=== PATIENT | male | born 1955 | race Two or more races ===

== ENCOUNTER → 2020-04-04 | Outpatient (CLI) | payer MEDICAID | END | disposition home or self-care (01) | LOC: XYW 10:51 | PROVIDERS: ATTEND Internal Medicine | DX: I11.9 Hypertensive heart disease without heart failure (principal); I77.819 Aortic ectasia, unspecified site | CPT/HCPCS: 93306 ==

== ENCOUNTER 2021-01-30 13:27 | Emergency (ER) | payer OTHER, MEDICAID ==
[~2021-01-30] VITALS: Ht 165.1 cm; Wt 78.0 kg
[2021-01-30] MEDS ORDERED: SODIUM CHLORIDE 0.9% 1,000 ML IVB ONE (14:00)
[2021-01-30] MEDS ORDERED: ONDANSETRON HCL 4 MG/2 ML VIAL IV ONE (14:00)
[2021-01-30 14:30] LABS: Basophils # (auto) 0 10 ^3/uL (0-0.2); Basophils % (auto) 0.4 % (0.0-2.0); Eosinophils # (auto) 0.1 10 ^3/uL (0-0.8); Eosinophils % (auto) 0.9 % (0.0-7.0); Hemoglobin 12.3 g/dL (13.5-17.5); Lymphocytes # (auto) 1.6 10 ^3/uL (0.4-5.4); Lymphocytes % (auto) 19.1 % (10.0-50.0); Mean Corpuscular Hemoglobin 28.4 pg (28.0-32.0); Mean Corpuscular Hgb Conc. 34.3 g/dL (32.0-36.0); Mean Corpuscular Volume 82.7 fL (80.0-100.0); Monocytes # (auto) 0.7 10 ^3/uL (0-1.3); Monocytes % (auto) 7.9 % (0.0-12.0); Neutrophils % (auto) 71.7 % (37.0-80.0); Platelet Count (auto) 241 10^3/uL (140-450); Red Blood Cells 4.35 10^6/uL (4.5-5.90); Red Cell Distribution Width 14.9 % (11.8-14.3); White Blood Cell 8.4 10^3/uL (4.4-10.8)
[2021-01-30 14:36] LABS: Urine Bacteria NONE SEEN /hpf (None Seen); Urine Blood Negative /uL (Negative); Urine Hyaline Cast FEW /lpf (0 - 2); Urine Mucus FEW (None Seen); Urine Specific Gravity 1.017 (1.001-1.035); Urine WBC <1 /hpf (0 - 3)
[2021-01-30 14:45] LABS: INR 1.05 (0.9-1.15); Partial Thromboplastin Time 27.3 sec (23.0-31.2)
[2021-01-30 14:47] LABS: Albumin 3.6 g/dL (3.4-5.0); Anion Gap 7 (5-15); Blood Urea Nitrogen 38 mg/dL (7-18); Calcium 8.5 mg/dL (8.5-10.1); Carbon Dioxide 25 mmol/L (21-32); Chloride 101 mmol/L (98-107); Glucose 89 mg/dL (74-106); Potassium 4.2 mmol/L (3.5-5.1); Sodium 133 mmol/L (136-145)
[2021-01-30 14:48] LABS: Magnesium 2.3 mg/dL (1.6-2.6)
[2021-01-30 14:49] LABS: Alanine Aminotransferase 24 U/L (16-61); Aspartate Aminotransferase 17 U/L (15-37); GFR African American 43 mL/min; GFR Non-African American 36 mL/min
[2021-01-30 14:53] LABS: Alkaline Phosphatase 80 U/L (45-117); Bilirubin, Total 0.6 mg/dL (0.2-1.0); Total Protein 7.3 g/dL (6.4-8.2)
[2021-01-30] MEDS ORDERED: KETOROLAC TROMETH 30 MG/ML 1ML VIAL IV ONE (15:30)
[2021-01-30 17:03] VITALS: BP 151/72
== END 2021-01-30 17:40 | disposition home or self-care (01) ==
LOC: ER 13:30
DX: N20.0 Calculus of kidney (principal); R11.2 Nausea with vomiting, unspecified; I10 Essential (primary) hypertension; E11.9 Type 2 diabetes mellitus without complications; Z90.49 Acquired absence of other specified parts of digestive tract; Z87.891 Personal history of nicotine dependence
CPT/HCPCS: 36415; 71046; 74176; 80053; 81001; 82962; 83690; 83735; 84484; 85025; 85610; 85730; 93005; 96361; 96374; 96375; 99285; J1885; J2405; J7030

== ENCOUNTER → 2021-02-15 | Outpatient (CLI) | payer MEDICAID ==
[2021-02-15 10:25] LABS: BUN/Creatinine Ratio 16.7; Calcium 9.3 mg/dL (8.5-10.1); Potassium 4.2 mmol/L (3.5-5.1)
== END | disposition home or self-care (01) ==
LOC: LAB 09:28
PROVIDERS: ATTEND Internal Medicine
DX: E11.49 Type 2 diabetes mellitus with other diabetic neurological complication (principal)
CPT/HCPCS: 36415; 80048; 83036

== ENCOUNTER → 2021-08-12 | Outpatient (CLI) | payer MEDICAID ==
[2021-08-12 15:41] LABS: Urine WBC None Seen /hpf (0 - 3)
[2021-08-12 15:56] LABS: Urine Bacteria NONE SEEN /hpf (None Seen); Urine Blood TRACE /uL (Negative); Urine Specific Gravity 1.016 (1.001-1.035)
[2021-08-12 16:18] LABS: Basophils # (auto) 0.1 10 ^3/uL (0-0.2); Basophils % (auto) 1.3 % (0.0-2.0); Eosinophils # (auto) 0.3 10 ^3/uL (0-0.8); Eosinophils % (auto) 3.9 % (0.0-7.0); Hematocrit 36.7 % (41.0-53.0); Lymphocytes # (auto) 1.6 10 ^3/uL (0.4-5.4); Lymphocytes % (auto) 24.4 % (10.0-50.0); Mean Corpuscular Hemoglobin 27.3 pg (28.0-32.0); Mean Corpuscular Hgb Conc. 32.8 g/dL (32.0-36.0); Mean Corpuscular Volume 83.2 fL (80.0-100.0); Monocytes # (auto) 0.4 10 ^3/uL (0-1.3); Monocytes % (auto) 6.9 % (0.0-12.0); Neutrophils # (auto) 4.1 10 ^3/uL (1.6-8.6); Neutrophils % (auto) 63.5 % (37.0-80.0); Red Blood Cells 4.41 10^6/uL (4.5-5.90); Red Cell Distribution Width 14.2 % (11.8-14.3); White Blood Cell 6.5 10^3/uL (4.4-10.8)
[2021-08-12 16:37] LABS: Chloride 108 mmol/L (98-107); Potassium 4.4 mmol/L (3.5-5.1); Sodium 139 mmol/L (136-145)
[2021-08-12 16:47] LABS: Alanine Aminotransferase 32 U/L (16-61); Albumin 3.7 g/dL (3.4-5.0); Alkaline Phosphatase 85 U/L (45-117); Anion Gap 7 (5-15); Aspartate Aminotransferase 21 U/L (15-37); BUN/Creatinine Ratio 8.4; Bilirubin, Total 0.3 mg/dL (0.2-1.0); Blood Urea Nitrogen 15 mg/dL (7-18); Calcium 8.5 mg/dL (8.5-10.1); Carbon Dioxide 24 mmol/L (21-32); Cholesterol 130 mg/dL (< 200); GFR African American 50 mL/min; GFR Non-African American 41 mL/min; Glucose 220 mg/dL (74-106); HDL Cholesterol 29 mg/dL (40-59); Total Protein 6.9 g/dL (6.4-8.2); Triglycerides 420 mg/dL (< 150)
== END | disposition home or self-care (01) ==
LOC: LAB 15:29
PROVIDERS: ATTEND Internal Medicine
DX: I10 Essential (primary) hypertension (principal); E55.9 Vitamin D deficiency, unspecified
CPT/HCPCS: 36415; 80053; 80061; 81001; 82043; 82306; 83036; 85025

== ENCOUNTER → 2021-10-30 | Outpatient (CLI) | payer MEDICAID ==
[2021-10-30 13:01] LABS: Potassium 4.4 mmol/L (3.5-5.1)
[2021-10-30 13:19] LABS: Albumin 3.8 g/dL (3.4-5.0); BUN/Creatinine Ratio 19.4; Bilirubin, Total 0.4 mg/dL (0.2-1.0); Calcium 9.2 mg/dL (8.5-10.1); Total Protein 7.9 g/dL (6.4-8.2)
== END | disposition home or self-care (01) ==
LOC: LAB 09:49
PROVIDERS: ATTEND Student in an Organized Health Care Education/Training Program
DX: E11.22 Type 2 diabetes mellitus with diabetic chronic kidney disease (principal); N18.9 Chronic kidney disease, unspecified
CPT/HCPCS: 36415; 80053; 82043; 83036

== ENCOUNTER 2022-01-10 12:41 | Day surgery (SDC) | payer OTHER, MEDICAID ==
[2022-01-08 09:33] LABS: Basophils # (auto) 0 10 ^3/uL (0-0.2); Basophils % (auto) 0.8 % (0.0-2.0); Eosinophils # (auto) 0.1 10 ^3/uL (0-0.8); Eosinophils % (auto) 2.6 % (0.0-7.0); Lymphocytes # (auto) 1.3 10 ^3/uL (0.4-5.4); Lymphocytes % (auto) 23.6 % (10.0-50.0); Mean Corpuscular Hemoglobin 26.5 pg (28.0-32.0); Mean Corpuscular Hgb Conc. 33.4 g/dL (32.0-36.0); Mean Corpuscular Volume 79.3 fL (80.0-100.0); Monocytes # (auto) 0.4 10 ^3/uL (0-1.3); Monocytes % (auto) 7.8 % (0.0-12.0); Neutrophils # (auto) 3.7 10 ^3/uL (1.6-8.6); Neutrophils % (auto) 65.2 % (37.0-80.0); Red Blood Cells 4.54 10^6/uL (4.5-5.90); Red Cell Distribution Width 14.7 % (11.8-14.3); White Blood Cell 5.7 10^3/uL (4.4-10.8)
[2022-01-08 09:54] LABS: INR 1.08 (0.9-1.15)
[2022-01-08 10:33] LABS: Potassium 4.2 mmol/L (3.5-5.1)
[2022-01-08 10:39] LABS: Albumin 3.6 g/dL (3.4-5.0); BUN/Creatinine Ratio 14.8; Bilirubin, Total 0.3 mg/dL (0.2-1.0); Calcium 8.9 mg/dL (8.5-10.1); Total Protein 7.5 g/dL (6.4-8.2)
[~2022-01-10] VITALS: Ht 165.1 cm; Wt 77.1 kg
[~2022-01-10 12:41] MED LIST: CARV25TA55 PO; INSUINJ37 SC; LIRA18IN2 SUBCUT; LOSA-39 PO; METF-372 PO; ROSU40TA PO
[2022-01-10] MEDS ORDERED: LIDOCAINE VISCOUS 2% 15ML UD ONE (13:07)
[2022-01-10] MEDS ORDERED: SODIUM CHLORIDE LOCK 10 ML ONE (13:07)
[2022-01-10] MEDS: fentaNYL CITRATE 100 MCG/2 ML VL ONE ×2 (14:34→14:46)
[2022-01-10] MEDS: MIDAZOLAM HCL 5 MG/ML-1ML VIAL ONE ×2 (14:34→14:48)
[2022-01-10] MEDS: diphenhdrAMINE HCL 50 MG/1 ML VL ONE ×2 (14:34→14:38)
[2022-01-10 15:40] VITALS: BP 192/93
== END 2022-01-10 15:40 | disposition home or self-care (01) ==
LOC: GI 12:41
PROVIDERS: ATTEND Internal Medicine Gastroenterology
DX: K62.5 Hemorrhage of anus and rectum (principal); D12.4 Benign neoplasm of descending colon; D12.3 Benign neoplasm of transverse colon; D12.5 Benign neoplasm of sigmoid colon; K62.1 Rectal polyp; K57.30 Diverticulosis of large intestine without perforation or abscess without bleeding; K64.8 Other hemorrhoids; I10 Essential (primary) hypertension; E11.9 Type 2 diabetes mellitus without complications; E78.5 Hyperlipidemia, unspecified; Z90.49 Acquired absence of other specified parts of digestive tract; Z86.010 Personal history of colon polyps; Z20.822 Contact with and (suspected) exposure to COVID-19
CPT/HCPCS: 36415; 45385; 80053; 82962; 85025; 85610; 85730; 88305; J1200; J2250; J3010; J7030; U0003; 99153; G0500

== ENCOUNTER 2022-01-30 13:25 | Inpatient (IN) | payer OTHER, MEDICAID ==
[~2022-01-30] VITALS: Ht 165.1 cm; Wt 79.1 kg
[2022-01-30 14:28] LABS: Basophils # (auto) 0.1 10 ^3/uL (0-0.2); Eosinophils # (auto) 0 10 ^3/uL (0-0.8); Eosinophils % (auto) 0.7 % (0.0-7.0); Monocytes # (auto) 0.7 10 ^3/uL (0-1.3); Nucleated Red Blood Cells % 0.1 %
[2022-01-30 14:30] LABS: Basophils % (auto) 1.2 % (0.0-2.0); Hematocrit 36.7 % (41.0-53.0); Hemoglobin 12.3 g/dL (13.5-17.5); Lymphocytes # (auto) 1.3 10 ^3/uL (0.4-5.4); Lymphocytes % (auto) 24.1 % (10.0-50.0); Mean Corpuscular Hemoglobin 26.6 pg (28.0-32.0); Mean Corpuscular Hgb Conc. 33.6 g/dL (32.0-36.0); Mean Corpuscular Volume 79.3 fL (80.0-100.0); Monocytes % (auto) 12.6 % (0.0-12.0); Neutrophils # (auto) 3.3 10 ^3/uL (1.6-8.6); Neutrophils % (auto) 61.4 % (37.0-80.0); Red Blood Cells 4.63 10^6/uL (4.5-5.90); Red Cell Distribution Width 15.5 % (11.8-14.3); White Blood Cell 5.3 10^3/uL (4.4-10.8)
[2022-01-30 14:42] LABS: Albumin 3.3 g/dL (3.4-5.0); Calcium 8.7 mg/dL (8.5-10.1)
[2022-01-30 14:45] LABS: BUN/Creatinine Ratio 9.6; Bilirubin, Total 0.3 mg/dL (0.2-1.0); Total Protein 7.7 g/dL (6.4-8.2)
[2022-01-30 14:49] LABS: INR 1.08 (0.9-1.15); Partial Thromboplastin Time 28.7 sec (23.6-33.0)
[2022-01-30 20:01] VITALS: BP 122/78
[2022-01-30 21:30] LABS: Urine Bacteria FEW /hpf (None Seen); Urine Blood TRACE /uL (Negative); Urine Mucus FEW (None Seen); Urine WBC 4 /hpf (0 - 3)
[2022-01-30] MEDS ORDERED: ACETAMINOPHEN 325 MG TAB PO PRN (21:35)
[2022-01-30] MEDS ORDERED: ASPirin 81 mg TAB PO ONE (21:35)
[2022-01-30] MEDS ORDERED: DEXTROSE (50%) 50ML SYRG IV PRN (21:35)
[2022-01-30] MEDS ORDERED: ONDANSETRON HCL 4 MG/2 ML VIAL IV PRN (21:40)
[2022-01-30] MEDS ORDERED: DOCUSATE SOD 100 MG CAP PO PRN (21:40)
[2022-01-30] MEDS ORDERED: HYDROcodone-ACET 5/325MG TAB PO PRN (21:40)
[2022-01-30] MEDS: ALBUTEROL SULF HFA 90MCG INH 200DOSE IN SCH (21:56)
[2022-01-30] MEDS ORDERED: ATORVASTATIN 20 MG TAB PO SCH (22:00)
[2022-01-30] MEDS: InsuLIN REG 1unit/0.01ml Soln (100units/ml) SC SCH (22:00)
[2022-01-30] MEDS: SODIUM CHLOR 0.9% PF (SALINE LOCK) 10ML VIAL/SYR IV SCH (22:00)
[2022-01-30] MEDS: ACCU-CHEK COMFORT CURVE STRIP VI SCH (22:00)
[2022-01-30] MEDS: CARVEDILOL 12.5 MG TAB PO SCH (23:13)
[2022-01-30] MEDS ORDERED: NITROGLYCERIN 0.4 MG SL TAB SL PRN (23:45)
[2022-01-30] MEDS ORDERED: MORPHINE SULFATE INJ 2 MG/ml SYRG IV PRN (23:45)
[2022-01-31] VITALS (7 sets, daily range): BP systolic 141–173; BP diastolic 56–86
[2022-01-31] MEDS: AZITHROMYCIN 500MG/ 250ML 250 ML IV SCH ×2 (00:03→21:29)
[2022-01-31] MEDS: ACCU-CHEK COMFORT CURVE STRIP VI SCH ×4 (06:39→22:18)
[2022-01-31] MEDS: InsuLIN REG 1unit/0.01ml Soln (100units/ml) SC SCH ×4 (06:39→22:29)
[2022-01-31] MEDS: SODIUM CHLOR 0.9% PF (SALINE LOCK) 10ML VIAL/SYR IV SCH ×3 (06:40→22:17)
[2022-01-31 07:20] LABS: Basophils # (auto) 0 10 ^3/uL (0-0.2); Eosinophils # (auto) 0.1 10 ^3/uL (0-0.8); Lymphocytes # (auto) 1.1 10 ^3/uL (0.4-5.4); Monocytes # (auto) 0.6 10 ^3/uL (0-1.3); Neutrophils # (auto) 2.4 10 ^3/uL (1.6-8.6); Nucleated Red Blood Cells % 0.1 %; White Blood Cell 4.2 10^3/uL (4.4-10.8)
[2022-01-31 07:22] LABS: Basophils % (auto) 0.7 % (0.0-2.0); Hematocrit 34.8 % (41.0-53.0); Hemoglobin 11.7 g/dL (13.5-17.5); Lymphocytes % (auto) 26.9 % (10.0-50.0); Mean Corpuscular Hemoglobin 26.9 pg (28.0-32.0); Mean Corpuscular Hgb Conc. 33.7 g/dL (32.0-36.0); Mean Corpuscular Volume 79.8 fL (80.0-100.0); Monocytes % (auto) 14.2 % (0.0-12.0); Neutrophils % (auto) 56.2 % (37.0-80.0); Red Blood Cells 4.37 10^6/uL (4.5-5.90); Red Cell Distribution Width 15.1 % (11.8-14.3)
[2022-01-31 07:37] LABS: Albumin 2.9 g/dL (3.4-5.0); Calcium 8.5 mg/dL (8.5-10.1)
[2022-01-31 07:43] LABS: BUN/Creatinine Ratio 14.4; Bilirubin, Total 0.3 mg/dL (0.2-1.0); Total Protein 6.9 g/dL (6.4-8.2)
[2022-01-31] MEDS ORDERED: DexAMETHasone SOD PHOS 10MG/1ML VIAL INJ IV SCH (10:00)
[2022-01-31] MEDS: ASPirin 81 mg TAB PO SCH (10:47)
[2022-01-31] MEDS: ASCORBIC ACID 1,000 MG TAB PO SCH (10:48)
[2022-01-31] MEDS: CHOLECALCIFEROL (VITD3) 2,000 UNIT CAP/TAB PO SCH (10:48)
[2022-01-31] MEDS: CARVEDILOL 12.5 MG TAB PO SCH ×2 (10:49→22:18)
[2022-01-31] MEDS: hydrALAZINE HCL 20 MG/ML VL IV PRN ×2 (12:08→22:36)
[2022-01-31] MEDS: ZINC SULFATE 220mg CAP or TAB PO SCH (12:14)
[2022-01-31] MEDS ORDERED: cefTRIAXone 1GM/50ML D5W 50 ML IV ONE (16:15)
[2022-01-31] MEDS ORDERED: LOSARTAN POTASSIUM 50 MG TAB PO ONE (16:30)
[2022-01-31] MEDS ORDERED: POLYETHYLENE GLYCOL 17 GM PWDR PO ONE (16:30)
[2022-01-31] MEDS: ALBUTEROL SULF HFA 90MCG INH 200DOSE IN SCH (16:51)
[2022-01-31] MEDS ORDERED: IPRATROPIUM BROMIDE HFA AER IN SCH (18:00)
[2022-01-31] MEDS ORDERED: INSULIN LANTUS (GLARGINE) 1 /0.01ml (100units/ml) SC ONE (18:30)
[2022-01-31] MEDS: SODIUM CHLORIDE 0.9% 1,000 ML IV SCH (19:45)
[2022-01-31 19:55] LABS: Albumin 3.4 g/dL (3.4-5.0); Calcium 8.8 mg/dL (8.5-10.1); Potassium 4.2 mmol/L (3.5-5.1)
[2022-01-31 20:37] LABS: BUN/Creatinine Ratio 15.8; Bilirubin, Total 0.3 mg/dL (0.2-1.0); Total Protein 8.1 g/dL (6.4-8.2)
[2022-01-31] MEDS ORDERED: IPRATROPIUM BROM 0.5 MG/2.5ML INH SOL NEB SCH (22:00)
[2022-01-31] MEDS: ATORVASTATIN 20 MG TAB PO SCH (22:18)
[2022-02-01 05:00] VITALS: BP 152/84
[2022-02-01] MEDS: SODIUM CHLOR 0.9% PF (SALINE LOCK) 10ML VIAL/SYR IV SCH ×3 (05:42→21:48)
[2022-02-01] MEDS: SODIUM CHLORIDE 0.9% 1,000 ML IV SCH ×3 (05:42→23:45)
[2022-02-01] MEDS: ALBUTEROL SULF HFA 90MCG INH 200DOSE IN SCH ×3 (06:26→18:50)
[2022-02-01] MEDS: ACCU-CHEK COMFORT CURVE STRIP VI SCH ×4 (06:33→21:38)
[2022-02-01] MEDS: IPRATROPIUM BROMIDE HFA AER IN SCH ×3 (06:33→18:50)
[2022-02-01] MEDS: InsuLIN REG 1unit/0.01ml Soln (100units/ml) SC SCH ×4 (06:37→21:48)
[2022-02-01] MEDS: cefTRIAXone 1GM/50ML D5W 50 ML IV SCH (09:00)
[2022-02-01 09:13] VITALS: BP 132/77
[2022-02-01] MEDS: CARVEDILOL 12.5 MG TAB PO SCH ×2 (10:26→21:37)
[2022-02-01] MEDS: ZINC SULFATE 220mg CAP or TAB PO SCH (10:26)
[2022-02-01] MEDS: CHOLECALCIFEROL (VITD3) 2,000 UNIT CAP/TAB PO SCH (10:26)
[2022-02-01] MEDS: POLYETHYLENE GLYCOL 17 GM PWDR PO SCH (10:27)
[2022-02-01] MEDS: ASCORBIC ACID 1,000 MG TAB PO SCH (10:27)
[2022-02-01] MEDS: ASPirin 81 mg TAB PO SCH (10:27)
[2022-02-01] MEDS ORDERED: ERGOCALCIFEROL 50,000 UNIT(1.25MG) CAP PO SCH (11:30)
[2022-02-01] MEDS: INSULIN LANTUS (GLARGINE) 1 /0.01ml (100units/ml) SC SCH ×2 (12:49→21:41)
[2022-02-01 13:00] VITALS: BP 138/77
[2022-02-01 17:00] VITALS: BP 144/70
[2022-02-01] MEDS: ATORVASTATIN 20 MG TAB PO SCH (21:37)
[2022-02-01] MEDS: AZITHROMYCIN 500MG/ 250ML 250 ML IV SCH (21:38)
[2022-02-01 22:00] VITALS: BP 158/58
[2022-02-01] MEDS ORDERED: INSULIN LANTUS (GLARGINE) 1 /0.01ml (100units/ml) SC SCH (22:00)
[2022-02-02] VITALS (7 sets, daily range): BP systolic 140–222; BP diastolic 56–97
[2022-02-02] MEDS: SODIUM CHLOR 0.9% PF (SALINE LOCK) 10ML VIAL/SYR IV SCH ×2 (05:58→14:10)
[2022-02-02] MEDS: ACCU-CHEK COMFORT CURVE STRIP VI SCH ×2 (06:08→13:14)
[2022-02-02] MEDS: InsuLIN REG 1unit/0.01ml Soln (100units/ml) SC SCH ×2 (06:08→11:30)
[2022-02-02] MEDS: hydrALAZINE HCL 20 MG/ML VL IV PRN ×2 (06:11→13:53)
[2022-02-02] MEDS: ALBUTEROL SULF HFA 90MCG INH 200DOSE IN SCH ×2 (06:30→15:17)
[2022-02-02] MEDS: IPRATROPIUM BROMIDE HFA AER IN SCH ×2 (06:30→15:17)
[2022-02-02] MEDS: cefTRIAXone 1GM/50ML D5W 50 ML IV SCH (08:43)
[2022-02-02] MEDS: ASPirin 81 mg TAB PO SCH (09:18)
[2022-02-02] MEDS: ASCORBIC ACID 1,000 MG TAB PO SCH (09:19)
[2022-02-02] MEDS: ZINC SULFATE 220mg CAP or TAB PO SCH (09:19)
[2022-02-02] MEDS: CARVEDILOL 12.5 MG TAB PO SCH (09:19)
[2022-02-02] MEDS: CHOLECALCIFEROL (VITD3) 2,000 UNIT CAP/TAB PO SCH (09:20)
[2022-02-02] MEDS: INSULIN LANTUS (GLARGINE) 1 /0.01ml (100units/ml) SC SCH (09:20)
[2022-02-02] MEDS: POLYETHYLENE GLYCOL 17 GM PWDR PO SCH (10:00)
[2022-02-02] MEDS: SODIUM CHLORIDE 0.9% 1,000 ML IV SCH (10:30)
[2022-02-02] MEDS ORDERED: ALBUAER3 IN (11:05)
[2022-02-02] MEDS ORDERED: ERGO1CAP23 PO (11:05)
[2022-02-02] MEDS ORDERED: EMPA1TAB PO (11:05)
[2022-02-02] MEDS ORDERED: cloNIDine HCL 0.1 MG TAB PO ONE (14:15)
== END 2022-02-02 16:21 | disposition home or self-care (01) | DRG 177 ==
LOC: ER 13:25 → TELE 23:42 → TELE-EAST 01-31 01:39
PROVIDERS: ADMIT Nurse Practitioner Family; ATTEND Internal Medicine
DX: U07.1 COVID-19 (principal); J18.0 Bronchopneumonia, unspecified organism; J12.82 Pneumonia due to coronavirus disease 2019; N17.9 Acute kidney failure, unspecified; C34.90 Malignant neoplasm of unspecified part of unspecified bronchus or lung; J98.11 Atelectasis; N18.32 Chronic kidney disease, stage 3b; E11.22 Type 2 diabetes mellitus with diabetic chronic kidney disease; I12.9 Hypertensive chronic kidney disease with stage 1 through stage 4 chronic kidney disease, or unspecified chronic kidney disease; Z79.84 Long term (current) use of oral hypoglycemic drugs; Z79.899 Other long term (current) drug therapy; Z90.49 Acquired absence of other specified parts of digestive tract; Z82.49 Family history of ischemic heart disease and other diseases of the circulatory system; Z87.891 Personal history of nicotine dependence; R91.1 Solitary pulmonary nodule
CPT/HCPCS: 36415; 71045; 71250; 74176; 80053; 80061; 81001; 82306; 82962; 83036; 83735; 84484; 85025; 85379; 85610; 85730; 93005; 93306; 94640; 96365; 96375; G0378; J0696; J1100; J1815

== ENCOUNTER 2022-04-23 12:18 | Day surgery (SDC) | payer OTHER, MEDICAID ==
[2022-04-22 14:15] LABS: Eosinophils # (auto) 0.2 10 ^3/uL (0-0.8); Hemoglobin 11.7 g/dL (13.5-17.5); Monocytes # (auto) 0.5 10 ^3/uL (0-1.3); Red Cell Distribution Width 15.9 % (11.8-14.3)
[2022-04-22 14:17] LABS: Basophils # (auto) 0 10 ^3/uL (0-0.2); Basophils % (auto) 0.9 % (0.0-2.0); Eosinophils % (auto) 3.1 % (0.0-7.0); Hematocrit 36.7 % (41.0-53.0); Lymphocytes # (auto) 1.7 10 ^3/uL (0.4-5.4); Lymphocytes % (auto) 32.5 % (10.0-50.0); Mean Corpuscular Hemoglobin 25.2 pg (28.0-32.0); Mean Corpuscular Hgb Conc. 31.8 g/dL (32.0-36.0); Mean Corpuscular Volume 79.3 fL (80.0-100.0); Monocytes % (auto) 9.2 % (0.0-12.0); Neutrophils # (auto) 2.9 10 ^3/uL (1.6-8.6); Neutrophils % (auto) 54.3 % (37.0-80.0); Red Blood Cells 4.63 10^6/uL (4.5-5.90); White Blood Cell 5.4 10^3/uL (4.4-10.8)
[2022-04-22 14:44] LABS: INR 1.01 (0.9-1.15); Partial Thromboplastin Time 25.9 sec (24.6-33.4)
[2022-04-22 14:49] LABS: Albumin 3.6 g/dL (3.4-5.0); Calcium 8.9 mg/dL (8.5-10.1); Potassium 4.5 mmol/L (3.5-5.1)
[2022-04-22 14:51] LABS: BUN/Creatinine Ratio 13.2
[2022-04-22 14:54] LABS: Bilirubin, Total 0.4 mg/dL (0.2-1.0)
[~2022-04-23] VITALS: Ht 165.1 cm; Wt 74.8 kg
[~2022-04-23 12:18] MED LIST changes: +CICL8KIT4 EX; +ERGO1CAP23 PO; +KETO2CRE4 EX; +LIDOCAINE VISCOUS 2% 15ML UD ONE; +SITA25TA3 PO; +SODIUM CHLORIDE LOCK 10 ML ONE; +TRIATAB3 OR; +diphenhdrAMINE HCL 50 MG/1 ML VL ONE
[2022-04-23] MEDS: fentaNYL CITRATE 100 MCG/2 ML VL ONE ×2 (13:50→13:53)
[2022-04-23] MEDS: MIDAZOLAM HCL 5 MG/ML-1ML VIAL ONE ×2 (13:50→13:53)
[2022-04-23 14:40] VITALS: BP 199/94
== END 2022-04-23 14:46 | disposition home or self-care (01) ==
LOC: GI 12:18
PROVIDERS: ATTEND Internal Medicine Gastroenterology
DX: D64.9 Anemia, unspecified (principal); K31.7 Polyp of stomach and duodenum; K44.9 Diaphragmatic hernia without obstruction or gangrene; K29.50 Unspecified chronic gastritis without bleeding; Z90.49 Acquired absence of other specified parts of digestive tract; Z98.890 Other specified postprocedural states; Z79.899 Other long term (current) drug therapy; Z20.822 Contact with and (suspected) exposure to COVID-19; Z87.891 Personal history of nicotine dependence
CPT/HCPCS: 36415; 43239; 80053; 82962; 85025; 85610; 85730; 88305; 88342; J2250; J3010; J7030; U0003; 45380; 99152

== ENCOUNTER → 2022-05-27 | Outpatient (CLI) | payer OTHER, MEDICAID ==
[~2022-05-27] MED LIST changes: -LIDOCAINE VISCOUS 2% 15ML UD ONE; -SODIUM CHLORIDE LOCK 10 ML ONE; -diphenhdrAMINE HCL 50 MG/1 ML VL ONE
== END | disposition home or self-care (01) ==
LOC: LAB 10:48
PROVIDERS: ATTEND Student in an Organized Health Care Education/Training Program
DX: E11.22 Type 2 diabetes mellitus with diabetic chronic kidney disease (principal)
CPT/HCPCS: 36415; 83036

== ENCOUNTER → 2022-11-12 | Outpatient (CLI) | payer OTHER ==
[2022-11-12 11:03] LABS: Basophils # (auto) 0 10 ^3/uL (0-0.2); Basophils % (auto) 0.6 % (0.0-2.0); Eosinophils # (auto) 0.1 10 ^3/uL (0-0.8); Eosinophils % (auto) 1.6 % (0.0-7.0); Hematocrit 40.6 % (41.0-53.0); Hemoglobin 13.8 g/dL (13.5-17.5); Lymphocytes % (auto) 12.9 % (10.0-50.0); Mean Corpuscular Hemoglobin 28.2 pg (28.0-32.0); Mean Corpuscular Volume 82.9 fL (80.0-100.0); Monocytes # (auto) 0.7 10 ^3/uL (0-1.3); Monocytes % (auto) 9.6 % (0.0-12.0); Neutrophils # (auto) 5.5 10 ^3/uL (1.6-8.6); Neutrophils % (auto) 75.3 % (37.0-80.0); Nucleated Red Blood Cells % 0.2 %; Red Blood Cells 4.89 10^6/uL (4.5-5.90); Red Cell Distribution Width 14.6 % (11.8-14.3); White Blood Cell 7.4 10^3/uL (4.4-10.8)
[2022-11-12 11:51] LABS: Potassium 3.8 mmol/L (3.5-5.1)
[2022-11-12 11:56] LABS: Albumin 4.4 g/dL (3.4-5.0); BUN/Creatinine Ratio 13.1; Bilirubin, Total 0.5 mg/dL (0.2-1.0); Calcium 9.8 mg/dL (8.5-10.1); Total Protein 8.4 g/dL (6.4-8.2)
[2022-11-12 12:05] LABS: % Iron Saturation 9.4 % (20-55)
[2022-11-12 14:27] LABS: Folate (Folic Acid) 23.38 ng/mL (5.38-24)
== END | disposition home or self-care (01) ==
LOC: LAB 10:35
PROVIDERS: ATTEND Internal Medicine Gastroenterology
DX: R19.7 Diarrhea, unspecified (principal); R10.9 Unspecified abdominal pain; E11.9 Type 2 diabetes mellitus without complications
CPT/HCPCS: 36415; 80053; 82607; 82746; 82784; 83516; 83540; 83550; 85025; 86255; 86677

== ENCOUNTER 2023-09-08 08:50 | Day surgery (SDC) | payer OTHER, MEDICAID ==
[2023-09-02 10:10] LABS: Basophils # (auto) 0.1 10 ^3/uL (0-0.2); Basophils % (auto) 1.2 % (0.0-2.0); Eosinophils # (auto) 0.3 10 ^3/uL (0-0.8); Eosinophils % (auto) 4.6 % (0.0-7.0); Hematocrit 36.4 % (41.0-53.0); Hemoglobin 12.2 g/dL (13.5-17.5); Lymphocytes # (auto) 1.6 10 ^3/uL (0.4-5.4); Lymphocytes % (auto) 28.6 % (10.0-50.0); Mean Corpuscular Hemoglobin 28.4 pg (28.0-32.0); Mean Corpuscular Hgb Conc. 33.4 g/dL (32.0-36.0); Mean Corpuscular Volume 85.1 fL (80.0-100.0); Monocytes # (auto) 0.5 10 ^3/uL (0-1.3); Monocytes % (auto) 9.5 % (0.0-12.0); Neutrophils # (auto) 3.1 10 ^3/uL (1.6-8.6); Neutrophils % (auto) 56.1 % (37.0-80.0); Nucleated Red Blood Cells % 0.1 %; Red Blood Cells 4.28 10^6/uL (4.5-5.90); Red Cell Distribution Width 14.1 % (11.8-14.3); White Blood Cell 5.6 10^3/uL (4.4-10.8)
[2023-09-02 10:35] LABS: INR 0.98 (0.9-1.15); Prothrombin Time 10.3 sec (9.3-11.8)
[2023-09-02 10:47] LABS: Alanine Aminotransferase 18 U/L (7-40); Albumin 4.5 g/dL (3.2-4.8); Alkaline Phosphatase 81 U/L (46-116); Anion Gap 12 (5-15); Aspartate Aminotransferase 13 U/L (13-40); BUN/Creatinine Ratio 5.6 (10.0-20.0); Bilirubin, Total 0.3 mg/dL (0.2-1.0); Blood Urea Nitrogen 8 mg/dL (9-23); Calcium 9.3 mg/dL (8.5-10.1); Carbon Dioxide 21 mmol/L (20-30); Chloride 107 mmol/L (98-107); Glucose 256 mg/dL (74-106); Potassium 4.3 mmol/L (3.5-5.1); Sodium 140 mmol/L (136-145)
[~2023-09-08] VITALS: Ht 165.1 cm; Wt 78.5 kg
[~2023-09-08 08:50] MED LIST changes: +ALBUAER3 IN; +AMLO1TAB23 PO; +ASCO500T11 PO; +ATOR20TA50 PO; -CICL8KIT4 EX; +CYAN-17 PO; +DULA1INJ SC; -ERGO1CAP23 PO; +FER325T PO; +HYDR25TA5 PO; +INSLANTI SC; -INSUINJ37 SC; -KETO2CRE4 EX; +LIDOCAINE VISCOUS 2% 15ML UD ONE; -LIRA18IN2 SUBCUT; -LOSA-39 PO; +LOSA100T58 PO; +MAGN1TAB29 PO; +MIDAZOLAM HCL 2MG/2ML 2ml VIAL (1mg/ml) ONE; -ROSU40TA PO; +TIRZ2.5I SC; -TRIATAB3 OR; +TURMPOW PO
[2023-09-08] MEDS ORDERED: LIDOCAINE VISCOUS 2% 15ML UD MT ONE (10:57)
[2023-09-08] MEDS: MIDAZOLAM HCL 5 MG/ML-1ML VIAL ONE ×2 (11:00→11:08)
[2023-09-08] MEDS: diphenhdrAMINE HCL 50 MG/1 ML VL ONE ×2 (11:00→11:03)
[2023-09-08] MEDS: fentaNYL CITRATE 100 MCG/2 ML VL ONE ×2 (11:00→11:11)
[2023-09-08] MEDS ORDERED: fentaNYL CITRATE 100 MCG/2 ML VL IV ONE (11:08)
[2023-09-08] MEDS ORDERED: MIDAZOLAM HCL 5 MG/ML-1ML VIAL IV ONE (11:11)
[2023-09-08 11:23] VITALS: PULSE 26; RESP 61; TEMP 97.9; O2SAT 100
[2023-09-08] MEDS ORDERED: LIDOCAINE VISCOUS 2% 15ML UD ONE (14:16)
[2023-09-08] MEDS ORDERED: SODIUM CHLORIDE LOCK 10 ML ONE (14:16)
== END 2023-09-08 12:20 | disposition home or self-care (01) ==
LOC: GI 08:50
PROVIDERS: ATTEND Internal Medicine Gastroenterology
DX: D64.9 Anemia, unspecified (principal); K29.50 Unspecified chronic gastritis without bleeding; K31.7 Polyp of stomach and duodenum; K44.9 Diaphragmatic hernia without obstruction or gangrene; E11.9 Type 2 diabetes mellitus without complications; Z90.49 Acquired absence of other specified parts of digestive tract
CPT/HCPCS: 36415; 43239; 80053; 82962; 85025; 85610; 85730; 88305; 88312; 88342; J1200; J2250; J3010; J7030; 99152

== ENCOUNTER → 2023-10-12 | Outpatient (CLI) | payer OTHER, MEDICAID ==
[~2023-10-12] MED LIST changes: -LIDOCAINE VISCOUS 2% 15ML UD ONE; -MIDAZOLAM HCL 2MG/2ML 2ml VIAL (1mg/ml) ONE
[2023-10-12 11:50] LABS: Basophils # (auto) 0.1 10 ^3/uL (0-0.2); Basophils % (auto) 0.7 % (0.0-2.0); Eosinophils # (auto) 0.2 10 ^3/uL (0-0.8); Eosinophils % (auto) 3.5 % (0.0-7.0); Hematocrit 37.1 % (41.0-53.0); Hemoglobin 12.6 g/dL (13.5-17.5); Lymphocytes # (auto) 2.1 10 ^3/uL (0.4-5.4); Lymphocytes % (auto) 30.9 % (10.0-50.0); Mean Corpuscular Hemoglobin 28.2 pg (28.0-32.0); Mean Corpuscular Hgb Conc. 33.9 g/dL (32.0-36.0); Mean Corpuscular Volume 83.2 fL (80.0-100.0); Monocytes # (auto) 0.6 10 ^3/uL (0-1.3); Monocytes % (auto) 8.6 % (0.0-12.0); Neutrophils # (auto) 3.9 10 ^3/uL (1.6-8.6); Neutrophils % (auto) 56.3 % (37.0-80.0); Nucleated Red Blood Cells % 0.1 %; Red Blood Cells 4.45 10^6/uL (4.5-5.90); Red Cell Distribution Width 14.8 % (11.8-14.3); White Blood Cell 6.9 10^3/uL (4.4-10.8)
[2023-10-12 12:12] LABS: Alanine Aminotransferase 34 U/L (7-40); Albumin 4.5 g/dL (3.2-4.8); Alkaline Phosphatase 77 U/L (46-116); Anion Gap 8 (5-15); Aspartate Aminotransferase 23 U/L (13-40); BUN/Creatinine Ratio 10.9 (10.0-20.0); Blood Urea Nitrogen 16 mg/dL (9-23); Calcium 9.6 mg/dL (8.5-10.1); Carbon Dioxide 25 mmol/L (20-30); Chloride 107 mmol/L (98-107); Cholesterol 143 mg/dL (< 200); Glucose 163 mg/dL (74-106); HDL Cholesterol 41 mg/dL (40-59); LDL Cholesterol 74 mg/dL (< 100); Potassium 4.2 mmol/L (3.5-5.1); Sodium 140 mmol/L (136-145); Triglycerides 241 mg/dL (< 150)
[2023-10-12 12:13] LABS: Bilirubin, Total 0.4 mg/dL (0.2-1.0); Total Protein 7.3 g/dL (5.7-8.2)
[2023-10-12 12:35] LABS: Creatinine, Urine 71.68 mg/dL (30.0-125.0)
[2023-10-13 06:06] LABS: Rubeola IgG Antibody >300.0 AU/mL (Immune >16.4); Varicella Zoster IgG Antibody 1283 index (Immune >165)
== END | disposition home or self-care (01) ==
LOC: LAB 11:05
PROVIDERS: ATTEND Student in an Organized Health Care Education/Training Program
DX: E11.42 Type 2 diabetes mellitus with diabetic polyneuropathy (principal); I10 Essential (primary) hypertension; E78.5 Hyperlipidemia, unspecified
CPT/HCPCS: 36415; 80053; 80061; 82043; 82570; 83036; 85025; 86706; 86735; 86762; 86765; 86787

== ENCOUNTER → 2024-03-18 | Day surgery (SDC) | payer OTHER, MEDICAID ==
[2024-03-15 11:19] LABS: Basophils # (auto) 0.1 10 ^3/uL (0-0.2); Basophils % (auto) 0.8 % (0.0-2.0); Eosinophils # (auto) 0.2 10 ^3/uL (0-0.8); Eosinophils % (auto) 2.8 % (0.0-7.0); Hemoglobin 11.6 g/dL (13.5-17.5); Lymphocytes # (auto) 1.8 10 ^3/uL (0.4-5.4); Lymphocytes % (auto) 23.2 % (10.0-50.0); Mean Corpuscular Hemoglobin 29.1 pg (28.0-32.0); Mean Corpuscular Hgb Conc. 34.2 g/dL (32.0-36.0); Mean Corpuscular Volume 85.3 fL (80.0-100.0); Monocytes # (auto) 0.7 10 ^3/uL (0-1.3); Monocytes % (auto) 8.5 % (0.0-12.0); Neutrophils # (auto) 5.1 10 ^3/uL (1.6-8.6); Neutrophils % (auto) 64.7 % (37.0-80.0); Red Blood Cells 3.98 10^6/uL (4.5-5.90); Red Cell Distribution Width 13.8 % (11.8-14.3); White Blood Cell 7.8 10^3/uL (4.4-10.8)
[2024-03-15 11:39] LABS: INR 1.03 (0.9-1.15); Partial Thromboplastin Time 27.1 SEC (24.5-34.5); Prothrombin Time 10.9 sec (9.3-11.8)
[2024-03-15 11:57] LABS: Alanine Aminotransferase 21 U/L (7-40); Alkaline Phosphatase 74 U/L (46-116); Anion Gap 7 (5-15); BUN/Creatinine Ratio 9.6 (10.0-20.0); Blood Urea Nitrogen 18 mg/dL (9-23); Calcium 9.8 mg/dL (8.5-10.1); Carbon Dioxide 24 mmol/L (20-30); Chloride 104 mmol/L (98-107); Glucose 244 mg/dL (74-106); Potassium 4.4 mmol/L (3.5-5.1); Sodium 135 mmol/L (136-145)
[2024-03-15 11:58] LABS: Albumin 4.3 g/dL (3.2-4.8); Aspartate Aminotransferase 15 U/L (13-40)
[2024-03-15 11:59] LABS: Bilirubin, Total 0.4 mg/dL (0.2-1.0); Total Protein 6.7 g/dL (5.7-8.2)
[~2024-03-18] VITALS: Ht 165.1 cm; Wt 77.1 kg
[~2024-03-18] MED LIST changes: -DULA1INJ SC; +LOSA-535 PO; -LOSA100T58 PO; +SODIUM CHLORIDE LOCK 10 ML ONE
[2024-03-18] MEDS: fentaNYL CITRATE 100 MCG/2 ML VL ONE (12:41)
[2024-03-18] MEDS: diphenhdrAMINE HCL 50 MG/1 ML VL ONE (12:41)
[2024-03-18] MEDS: MIDAZOLAM HCL 5 MG/ML-1ML VIAL ONE (12:41)
[2024-03-18 14:05] VITALS: BP 118/69; PULSE 54; RESP 14; O2SAT 97
== END | disposition home or self-care (01) ==
LOC: GI 09:46
PROVIDERS: ATTEND Internal Medicine Gastroenterology
DX: R19.4 Change in bowel habit (principal); D12.3 Benign neoplasm of transverse colon; I10 Essential (primary) hypertension; E78.5 Hyperlipidemia, unspecified; E11.9 Type 2 diabetes mellitus without complications; Z79.4 Long term (current) use of insulin; Z86.010 Personal history of colon polyps; Z90.49 Acquired absence of other specified parts of digestive tract; Z98.890 Other specified postprocedural states
CPT/HCPCS: 36415; 45385; 80053; 82962; 85025; 85610; 85730; 88305; J1200; J2250; J3010; J7030; 99152; 99153